=== PATIENT | female | born 1960 | race Caucasian/White ===

== ENCOUNTER 2016-12-15 06:17 | Day surgery (SDC) | payer MEDICARE ==
--- NOTE | 2016-12-05 14:15 | HP ---
CC: Dr. Medina Brooks * PREOPERATIVE HISTORY AND PHYSICAL: DATE OF PREOPERATIVE HISTORY AND PHYSICAL EXAMINATION: 12/05/16 This patient is scheduled for Same-Day Surgery admission by Dr. Pathak on , 12/15/16. ATTENDING SURGEON: Rao Pathak MD * (dictated by Lily Hernandez NP) CHIEF COMPLAINT: Mass on the right thigh. HISTORY OF PRESENT ILLNESS: The patient is a 56-year-old female referred to Dr. Pathak from Dr. Medina Brooks for evaluation of a mass on the right thigh. The patient first noticed this approximately 8 months ago. She had gone on a diet, lost approximately 50 pounds and then this right thigh mass became evident. She does not think it has grown in the last 6 months and denies any symptoms related to the mass. Dr. Pathak examined the patient and noted a palpable mass approximately the size of an egg on the right distal anterolateral quadriceps region consistent with lipomatous mass identified on MRI scan. Dr. Pathak discussed the findings with her and the patient agrees with excision of the lipoma on the right thigh as a Same-Day Surgery procedure with local anesthesia and intravenous sedation. Dr. Pathak discussed the nature of the surgical procedure, the relevant risks and benefits, and today I reviewed the typical postoperative care and recovery. The patient has had a chance to ask questions and stated that she understands the information and is satisfied with the answers given to her questions. She will sign surgical consent on the day of surgery. PAST MEDICAL HISTORY: Significant for hypertension, obstructive sleep apnea requiring the use of BiPAP, chronic back pain followed at [facility], cervical spondylosis without myelopathy, restless leg syndrome, cramping in the right calf during sleep, nasal congestion with maxillary sinusitis. PAST SURGICAL HISTORY: Hysterectomy, cholecystectomy, left shoulder arthroscopy , and right shoulder arthroscopy. OB HISTORY: 2, para 2. She is up-to-date with breast exam, mammogram, and pelvic exam in 2017 and denies any complaints. MEDICATIONS: 1. Buspirone 15 mg one half tablet b.i.d. 2. Vitamin D 1000 international units daily. 3. Celecoxib 200 mg daily. 4. Klor-Con 20 mEq 2 tablets daily. 5. Citalopram 20 mg p.o. daily. 6. Simvastatin 20 mg p.o. daily. 7. Fentanyl patch 25 mcg per hour apply 1 patch once every 3 days. 8. Trazodone 75 mg 1 to 2 tablets at bedtime as needed. 9. Lisinopril 10 mg p.o. daily. 10. Aspirin 81 mg p.o. daily and she will take her last dose preoperatively on 12/09/16. 11. Amlodipine 5 mg p.o. daily. 12. Levothyroxine 175 mcg p.o. daily. ALLERGIES: No known drug allergies. No food or latex allergies. SOCIAL HISTORY: She is and is unemployed; she has been a smoker for 25 years and currently smokes one half to 1 pack per day of cigarettes and states that she has a plan to quit. She denies the use of alcohol or other substances. FAMILY HISTORY: Mother alive and well at age 85 with a history of cervical cancer. Father in his late 60s with a history of alcoholism. No known anesthesia reactions, bleeding tendencies, or clotting disorders in the family. REVIEW OF SYSTEMS: Constitutional: No fever, chills, excessive fatigue, or night sweats. HEENT: Benign. Hematologic: No easy bruising or bleeding. Denies any history of deep vein thrombosis or pulmonary embolism. Endocrine: Denies diabetes; is on thyroid replacement. Respiratory: No dyspnea on exertion. No cough. Cardiovascular: No anginal chest pain, palpitations, or orthopnea. Gastrointestinal: No nausea, vomiting, diarrhea, GI bleeding, or constipation. Genitourinary: No urgency or hematuria. Musculoskeletal: Chronic back pain, restless leg syndrome, right calf cramping during sleep. Neurologic: No headache or blurred vision. Normal gait. No sensory problems. General: No previous anesthesia complications. PHYSICAL EXAMINATION GENERAL SURVEY: The patient is a 56-year-old female, well developed, well nourished, in no acute distress. VITAL SIGNS: Height 69 inches, weighs 190 pounds, body mass index 28.1. Blood pressure 122/68, pulse 84 and regular, respiratory rate 16, temperature 97.7 tympanic. HEENT: Benign. NECK: Supple. No cervical lymphadenopathy. LUNGS: Breath sounds bilaterally clear and equal. HEART: Regular rate and rhythm. No murmurs or rubs appreciated. ABDOMEN: Active bowel sounds. Soft, nontender, nondistended throughout. No obvious masses, organomegaly, or evidence of umbilical hernia. PELVIC: Deferred. RECTAL: Deferred. BACK: No CVA tenderness. EXTREMITIES: Right lower extremity, palpable mass, approximately the size of an egg on the right distal anterolateral quadriceps region, consistent with lipomatous mass identified on MRI scan. No other palpable masses on the lower extremities or the upper extremities. NEUROLOGIC: Alert and oriented x3. Steady gait. SKIN: Warm, dry, intact. IMPRESSION: Benign lipomatous neoplasm of skin and subcutaneous tissue of right leg. PLAN: Same-Day Surgery admission to Dr. Pathak's service on , 12/15/16 for excision of lipoma, right leg. LILY HERNANDEZ, MEMORIAL DESIGNER [id number]/[facility] #: [id number] MTDD
[~2016-12-15 06:17] MED LIST: Buffered Lidocaine 0.9% SYRIN* 5 ML/SYR SYRINGE INTRADERM ONE; Sodium Citrate/Citric Acid* 15 ML UDC PO ONE
[2016-12-15] MEDS ORDERED: Buffered Lidocaine 0.9% SYRIN* 5 ML/SYR SYRINGE ONE (06:33)
[2016-12-15] MEDS ORDERED: Sodium Citrate/Citric Acid* 15 ML UDC ONE (06:33)
[2016-12-15] MEDS ORDERED: Lidocaine 1% MPF wEPI 200,000* 30 ML SDV ONE (07:09)
[2016-12-15] MEDS ORDERED: Bupivacaine 0.5% SDV PF* 30 ML VIAL ONE (07:09)
[2016-12-15] MEDS ORDERED: fentaNYL* 50 MCG/ML 2 ML VIAL (100 MCG VIAL) ONE (07:46)
[2016-12-15] MEDS ORDERED: Midazolam* 1 MG/ML 5 ML VIAL (5 MG) ONE (07:46)
[2016-12-15] MEDS ORDERED: Lidocaine 2% PF * 5 ML VIAL ONE (07:54)
[2016-12-15] MEDS ORDERED: Propofol* 10 MG/ML 20 ML BTL IV PUSH ONE (07:54)
--- NOTE | 2016-12-15 09:51 | OP ---
CC: Dr. Pathak; Dr. Medina Brooks * DATE OF OPERATION: 12/15/16 - [facility] DATE OF : 60 SURGEON: Rao Pathak MD. CREATIVE ARTS THERAPIST: None. ANESTHESIOLOGIST: Dr. Foley. ANESTHESIA: LMAC anesthesia. PRE-OP DIAGNOSIS: Lipoma of right anterolateral thigh. POST-OP DIAGNOSIS: Lipoma of right anterolateral thigh. OPERATIVE PROCEDURE: Excision of intramuscular lipoma of right anterolateral thigh. DESCRIPTION OF PROCEDURE: Patient was supine on the operating table. After adequate intravenous sedation, compression stockings, Jeremiah Hugger warmer, and intravenous antibiotics, the right anterolateral thigh was prepped with antiseptic, draped in sterile fashion. Local infiltrative anesthesia was administered and approximately 4 cm incision was created over the palpable mass. Dissection was carried down to the quadriceps fascia, which was opened and then entering the muscle in the direction of the fibers, the lipomatous mass was identified. This was roughly the size of an egg. It shelled out easily, was sent in formalin for pathologic evaluation. It seems to be removed in its entirety and there is no suspicion of anything more ominous. The muscle and the fascia were reapproximated using 2-0 Vicryl and the subcutaneum and skin with 4-0 Vicryl, followed by Steri- Strips, gauze dressing, and an Luke wrap. She tolerated the procedure well and was brought to recovery in good condition. No complications. No drains. Pathologic specimen is lipoma. Sponge and instrument counts correct. Estimated blood loss is 10 mL. [id number]/[facility] #: [id number] MTDD
[2016-12-15 11:09] VITALS: BP 100/64
== END 2016-12-15 10:08 | disposition home or self-care (01) ==
LOC: OR 06:17
PROVIDERS: ATTEND Surgery
DX: D17.23 Benign lipomatous neoplasm of skin and subcutaneous tissue of right leg (principal); I10 Essential (primary) hypertension; G47.33 Obstructive sleep apnea (adult) (pediatric); M54.9 Dorsalgia, unspecified; G89.29 Other chronic pain; M47.812 Spondylosis without myelopathy or radiculopathy, cervical region; Z79.82 Long term (current) use of aspirin; F17.210 Nicotine dependence, cigarettes, uncomplicated; E03.9 Hypothyroidism, unspecified; E78.00 Pure hypercholesterolemia, unspecified
CPT/HCPCS: 88304; A9270-GY; J2001; J2250; J2704; J3010